=== PATIENT | female | born 1995 | race Caucasian/White ===

== ENCOUNTER 2017-08-06 18:18 | Emergency (ER) | payer OTHER ==
[~2017-08-06] VITALS: Ht 162.6 cm; Wt 55.0 kg
[2017-08-06 18:52] LABS: HEMATOCRIT 41.8 % (34.6-47.8); HEMOGLOBIN 14.2 g/dL (11.7-16.4); WHITE BLOOD COUNT 5.2 x10^3/uL (3.4-10)
[2017-08-06] MEDS ORDERED: SODIUM CHLORIDE 0.9% 1,000ML IVBOLUS ONE (19:00)
[2017-08-06] MEDS ORDERED: SODIUM CHLORIDE FLUSH 10ML SYR IVF ONE (19:00)
[2017-08-06 19:03] LABS: ASPARTATE AMINO TRANSFERASE 12 U/L (15-37); BLOOD UREA NITROGEN 6 mg/dL (7-18)
[2017-08-06 20:14] LABS: ACETAMINOPHEN < 2 mcg/mL (10-30)
[2017-08-06 20:21] LABS: DAU SCREEN DISCLAIMER
[2017-08-06 20:41] LABS: PATH.CAST-FLAG NOT PRESENT; SPERM-FLAG NOT PRESENT; SRC-FLAG NOT PRESENT; XTAL-FLAG NOT PRESENT; YLC-FLAG NOT PRESENT
[2017-08-06 21:34] VITALS: BP 124/88
== END 2017-08-06 22:48 | disposition home or self-care (01) ==
LOC: ED 20:31
DX: T42.4X2A Poisoning by benzodiazepines, intentional self-harm, initial encounter (principal); R44.0 Auditory hallucinations; F11.20 Opioid dependence, uncomplicated; Y92.89 Other specified places as the place of occurrence of the external cause
CPT/HCPCS: 36415; 80053; 80307; 80329; 81001; 84703; 85025; 87086; 93005; 99285; G0479; G0480

== ENCOUNTER 2017-12-02 17:30 | Emergency (ER) | payer OTHER ==
[~2017-12-02] VITALS: Ht 162.6 cm; Wt 56.4 kg
[2017-12-02 18:20] VITALS: BP 128/82
== END 2017-12-02 19:43 | disposition home or self-care (01) ==
LOC: ED 19:37
DX: S93.411A Sprain of calcaneofibular ligament of right ankle, initial encounter (principal); X58.XXXA Exposure to other specified factors, initial encounter; Y93.89 Activity, other specified; Y92.89 Other specified places as the place of occurrence of the external cause; Y99.8 Other external cause status
CPT/HCPCS: 29515; 99284